=== PATIENT | female | born 1930 | race Caucasian/White ===

== ENCOUNTER → 2017-01-27 | Outpatient (CLI) | payer OTHER ==
[~2017-01-27] MED LIST: LIDOCAINE 1%-EPI 1:100K, 20ML ONE; SODIUM BICARBONATE 4.2%, 5ML ONE
== END | disposition home or self-care (01) ==
LOC: CFH 09:31
PROVIDERS: ATTEND Internal Medicine
DX: R92.8 Other abnormal and inconclusive findings on diagnostic imaging of breast (principal)
CPT/HCPCS: 19081; 88305; G0206; J3490

== ENCOUNTER 2018-07-16 09:44 | Inpatient (IN) | payer MEDICARE, OTHER ==
[~2018-07-16] VITALS: Ht 157.5 cm; Wt 67.3 kg
[2018-07-16] MEDS ORDERED: ASPIRIN 81 MG TABLET CHEW ONE ×2 (10:17→10:22)
[2018-07-16] MEDS ORDERED: OMNIPAQUE 350 MG/ML, 100ML BOTTLE ONE (10:24)
[2018-07-16 10:37] LABS: BASOPHILS # (AUTO) 0.03 x10^3/uL (0-0.1); BASOPHILS % (AUTO) 1 % (0-1); EOSINOPHILS # (AUTO) 0.15 x10^3/uL (0-0.4); EOSINOPHILS % (AUTO) 3 % (1-7); LYMPHOCYTES # (AUTO) 1.75 x10^3/uL (1-3.4); LYMPHOCYTES % (AUTO) 29 % (22-44); MD NO; MEAN CORPUSCULAR HEMOGLOBIN 31.8 pg (27.0-34.8); MEAN CORPUSCULAR HGB CONC 34.2 g/dL (32.4-35.8); MEAN CORPUSCULAR VOLUME 93.1 fL (80-100); MEAN PLATELET VOLUME 9.8 fL (7.4-10.4); MONOCYTES # (AUTO) 0.45 x10^3/uL (0.2-0.8); MONOCYTES % (AUTO) 7 % (2-9); NEUTROPHILS # (AUTO) 3.74 x10^3/uL (1.8-6.8); NEUTROPHILS % (AUTO) 61 % (42-75); PLATELET COUNT 215 x10^3/uL (130-400); RED BLOOD COUNT 4.53 x10^6/uL (3.82-5.3); RED CELL DISTRIBUTION WIDTH 13.8 % (9.6-15.2)
[2018-07-16 10:48] LABS: INTERNATIONAL NORMALIZED RATIO 1.14 (0.93-1.1); PROTHROMBIN TIME 11.7 Seconds (9.6-11.5)
[2018-07-16 11:03] LABS: TROPONIN I 0.016 ng/mL (0.000-0.045)
[2018-07-16] MEDS ORDERED: ASPIRIN 81 MG TABLET CHEW PO ONE (11:30)
[2018-07-16 12:54] VITALS: BP 159/75
[2018-07-16] MEDS ORDERED: ONDANSETRON 2MG/ML, 2ML IVPush PRN (13:00)
[2018-07-16] MEDS ORDERED: LABETALOL 5MG/ML, 20ML IVPush PRN (13:00)
[2018-07-16] MEDS ORDERED: BISACODYL 10 MG SUPP PR PRN (13:00)
[2018-07-16] MEDS: D5%-0.45NACL+KCL 20MEQ 1,000 ML IV SCH (13:39)
[2018-07-16] MEDS: ENOXAPARIN 40 MG/0.4 ML SQ SCH (13:40)
[2018-07-16 14:00] VITALS: BP 159/75
[2018-07-16 20:00] VITALS: BP 149/72
[2018-07-17 02:00] VITALS: BP 147/72
[2018-07-17] MEDS: D5%-0.45NACL+KCL 20MEQ 1,000 ML IV SCH ×2 (03:34→22:21)
[2018-07-17 05:43] LABS: BASOPHILS # (AUTO) 0.03 x10^3/uL (0-0.1); BASOPHILS % (AUTO) 1 % (0-1); EOSINOPHILS % (AUTO) 2 % (1-7); LYMPHOCYTES # (AUTO) 1.44 x10^3/uL (1-3.4); LYMPHOCYTES % (AUTO) 28 % (22-44); MD NO; MEAN CORPUSCULAR HEMOGLOBIN 32.3 pg (27.0-34.8); MEAN CORPUSCULAR HGB CONC 34.8 g/dL (32.4-35.8); MEAN CORPUSCULAR VOLUME 93.1 fL (80-100); MEAN PLATELET VOLUME 9.3 fL (7.4-10.4); MONOCYTES # (AUTO) 0.42 x10^3/uL (0.2-0.8); MONOCYTES % (AUTO) 8 % (2-9); NEUTROPHILS # (AUTO) 3.16 x10^3/uL (1.8-6.8); NEUTROPHILS % (AUTO) 61 % (42-75); PLATELET COUNT 178 x10^3/uL (130-400); RED BLOOD COUNT 3.89 x10^6/uL (3.82-5.3); RED CELL DISTRIBUTION WIDTH 13.6 % (9.6-15.2)
[2018-07-17 05:56] LABS: ANION GAP 8 mmol/L (5-15); CALCIUM 8.6 mg/dL (8.5-10.1); CHLORIDE 112 mmol/L (98-107)
[2018-07-17 05:57] LABS: CREATININE 0.91 mg/dL (0.55-1.02)
[2018-07-17 06:52] VITALS: BP 148/75
[2018-07-17 12:39] VITALS: BP 156/72
[2018-07-17] MEDS: ENOXAPARIN 40 MG/0.4 ML SQ SCH (13:36)
[2018-07-17] MEDS ORDERED: GADOBUTROL 7.5 MMOL/7.5 ML PFS ONE (17:05)
[2018-07-17 17:45] LABS: CHOL/HDL RATIO 5.4; LDL/HDL RATIO 2.5 (0.5-3.0)
[2018-07-17] MEDS: ASPIRIN 81 MG TABLET CHEW PO SCH (18:20)
[2018-07-17 20:00] VITALS: BP 148/69
[2018-07-18 02:00] VITALS: BP 153/73
[2018-07-18 08:34] VITALS: BP 114/66
[2018-07-18] MEDS: ASPIRIN 81 MG TABLET CHEW PO SCH (10:08)
[2018-07-18] MEDS: LEVOTHYROXINE 100 MCG TABLET PO SCH (10:08)
[2018-07-18 12:59] LABS: MICROSCOPIC INDICATED
[2018-07-18] MEDS: ENOXAPARIN 40 MG/0.4 ML SQ SCH (13:00)
[2018-07-18 13:01] LABS: CULTURE INDICATED? YES
[2018-07-18] MEDS: SULFAMETH./TRIMETHOPRIM DS 800MG/160MG TABLET PO SCH ×2 (13:35→20:42)
[2018-07-18 13:39] VITALS: BP 123/71
[2018-07-18] MEDS ORDERED: ACETAMINOPHEN 325 MG TABLET PO PRN (14:00)
[2018-07-18] MEDS ORDERED: LEVO100T PO (16:57)
[2018-07-18] MEDS ORDERED: ACET325T14 PO (16:57)
[2018-07-18] MEDS ORDERED: SULF-169 PO (16:57)
[2018-07-18] MEDS ORDERED: ASPI-515 PO (16:57)
[2018-07-18] MEDS ORDERED: ATOR40TA78 PO (16:57)
[2018-07-18 19:58] VITALS: BP 136/69
[2018-07-18] MEDS ORDERED: ATORVASTATIN 40 MG TABLET PO SCH (21:00)
[2018-07-18] MEDS ORDERED: SULFAMETH./TRIMETHOPRIM DS 800MG/160MG TABLET PO SCH (21:00)
[2018-07-19 01:48] VITALS: BP 130/74
[2018-07-19] MEDS: LEVOTHYROXINE 100 MCG TABLET PO SCH (05:08)
[2018-07-19 06:33] VITALS: BP 107/63
[2018-07-19] MEDS ORDERED: ASPIRIN 81 MG TABLET CHEW PO SCH (09:00)
[2018-07-19] MEDS: SULFAMETH./TRIMETHOPRIM DS 800MG/160MG TABLET PO SCH (09:04)
== END 2018-07-19 11:59 | DRG 65 ==
LOC: ED 11:30 → 4WST 11:31 → ED 11:47
PROVIDERS: ADMIT Internal Medicine; ATTEND Internal Medicine
DX: I63.312 Cerebral infarction due to thrombosis of left middle cerebral artery (principal); N39.0 Urinary tract infection, site not specified; R29.810 Facial weakness; E78.5 Hyperlipidemia, unspecified; E03.9 Hypothyroidism, unspecified; M10.9 Gout, unspecified; I10 Essential (primary) hypertension; M81.0 Age-related osteoporosis without current pathological fracture; R13.10 Dysphagia, unspecified; S91.002A Unspecified open wound, left ankle, initial encounter; X58.XXXA Exposure to other specified factors, initial encounter; I08.0 Rheumatic disorders of both mitral and aortic valves; M19.90 Unspecified osteoarthritis, unspecified site; Z66 Do not resuscitate; Z80.0 Family history of malignant neoplasm of digestive organs; Z82.49 Family history of ischemic heart disease and other diseases of the circulatory system; Z90.710 Acquired absence of both cervix and uterus; I69.320 Aphasia following cerebral infarction; Y93.89 Activity, other specified; Y92.89 Other specified places as the place of occurrence of the external cause; Y99.8 Other external cause status
CPT/HCPCS: 36415; 70450; 70496; 70498; 70553; 80047; 80048; 80061; 81001; 84484; 85025; 85610; 85730; 87077; 87086; 87186; 93005; 93306; 93880; 99291; A9585; G0378; J1650; Q9967; 92523-GN; J3480

== ENCOUNTER 2018-09-07 19:16 | Inpatient (IN) | payer OTHER ==
[~2018-09-07] VITALS: Ht 167.6 cm; Wt 63.1 kg
[~2018-09-07 19:16] MED LIST changes: +ACET325T14 PO; +ASPI-515 PO; +ATOR40TA78 PO; +LEVO100T PO; -LIDOCAINE 1%-EPI 1:100K, 20ML ONE; -SODIUM BICARBONATE 4.2%, 5ML ONE; +SULF-169 PO
[2018-09-07] MEDS ORDERED: SODIUM CHLORIDE FLUSH 10ML SYR IVF ONE (20:00)
[2018-09-07 20:31] LABS: INTERNATIONAL NORMALIZED RATIO 1.1 (0.93-1.1); PROTHROMBIN TIME 11.4 Seconds (9.6-11.5)
[2018-09-07 20:32] LABS: ALANINE AMINOTRANSFERASE 28 U/L (12-78); ALBUMIN 2.9 g/dL (3.4-5.0); ANION GAP 11 mmol/L (5-15); CALCIUM 8.3 mg/dL (8.5-10.1); CHLORIDE 107 mmol/L (98-107); CREATININE 0.81 mg/dL (0.55-1.02)
[2018-09-07 20:36] LABS: ALKALINE PHOSPHATASE 91 U/L (45-117); BILIRUBIN,TOTAL 0.3 mg/dL (0.2-1.0); TOTAL PROTEIN 5.9 g/dL (6.4-8.2)
[2018-09-07 20:41] LABS: MEAN CORPUSCULAR HEMOGLOBIN 32.4 pg (27.0-34.8); MEAN CORPUSCULAR HGB CONC 32.7 g/dL (32.4-35.8); MEAN CORPUSCULAR VOLUME 99.3 fL (80-100); MEAN PLATELET VOLUME 8.2 fL (7.4-10.4); PLATELET COUNT 337 x10^3/uL (130-400); RED CELL DISTRIBUTION WIDTH 23.8 % (9.6-15.2)
[2018-09-07] MEDS ORDERED: PANTOPRAZOLE 40 MG IV ONE (20:50)
[2018-09-07] MEDS ORDERED: PANTOPRAZOLE 40 MG IV IVPush ONE (21:00)
[2018-09-07 21:11] LABS: MD YES
[2018-09-07 21:17] LABS: EOS#(MANUAL) 0.08 x10^3/uL (0.0-0.4); EOS% (MANUAL) 1 % (1-7); LYMPHS% (MANUAL) 18 % (22-44); MONOS#(MANUAL) 0.55 x10^3/uL (0.3-2.7); MONOS% (MANUAL) 7 % (2-9); NRBC % (MANUAL) 1 % (0-1); SEG#(MANUAL) 5.77 x10^3/uL (1.8-6.8); SEGS% (MANUAL) 74 % (42-75)
[2018-09-07 21:18] LABS: ANISOCYTOSIS 2+; MICROCYTOSIS 1+
[2018-09-07 21:19] LABS: POLYCHROMASIA 2+; TEAR DROPS 1+
[2018-09-07 21:20] LABS: <PLATELET ESTIMATE> ADEQUATE; <PLT MORPHOLOGY> NORMAL PLT MORPH
[2018-09-07] MEDS ORDERED: SODIUM CHLORIDE 0.9% 1,000 ML IV ONE (21:23)
[2018-09-07 21:47] VITALS: BP 118/42
[2018-09-07 22:05] VITALS: BP 123/41
[2018-09-07 23:15] VITALS: BP 115/65
[2018-09-07 23:44] VITALS: BP 121/65
[2018-09-08 00:40] VITALS: BP 110/57
[2018-09-08] MEDS ORDERED: POTA20TA89 PO (00:40)
[2018-09-08] MEDS ORDERED: FURO40TA6 PO (00:40)
[2018-09-08] MEDS ORDERED: MULT-516 PO (00:40)
[2018-09-08] MEDS ORDERED: DILT60TA30 PO (00:40)
[2018-09-08] MEDS ORDERED: APIX5TAB4 PO (00:40)
[2018-09-08] MEDS ORDERED: FERR325T5 PO (00:40)
[2018-09-08 03:30] LABS: CULTURE INDICATED? YES; MICROSCOPIC INDICATED
[2018-09-08 07:12] VITALS: BP 103/56
[2018-09-08] MEDS ORDERED: ACETAMINOPHEN 325 MG TABLET PO PRN (10:30)
[2018-09-08] MEDS ORDERED: TEMAZEPAM 15 MG CAPSULE PO PRN (10:30)
[2018-09-08] MEDS: SODIUM CHLORIDE FLUSH 10ML SYR IVF SCH ×2 (10:30→21:00)
[2018-09-08] MEDS: PANTOPRAZOLE 40 MG IV IVPush SCH (12:04)
[2018-09-08 14:18] VITALS: BP 101/52
[2018-09-08] MEDS: POTASSIUM CHLORIDE 20 MEQ TAB.ER.PRT PO SCH (18:19)
[2018-09-08] MEDS: FERROUS SULFATE 325 MG TABLET PO SCH (18:19)
[2018-09-08 21:06] VITALS: BP 118/57
[2018-09-09] VITALS (9 sets, daily range): BP systolic 105–121; BP diastolic 52–68
[2018-09-09] MEDS: LEVOTHYROXINE 100 MCG TABLET PO SCH (04:19)
[2018-09-09 05:22] LABS: ANION GAP 8 mmol/L (5-15); CALCIUM 8.1 mg/dL (8.5-10.1); CHLORIDE 110 mmol/L (98-107)
[2018-09-09 05:23] LABS: MEAN CORPUSCULAR HEMOGLOBIN 31.8 pg (27.0-34.8); MEAN CORPUSCULAR HGB CONC 32.6 g/dL (32.4-35.8); MEAN CORPUSCULAR VOLUME 97.6 fL (80-100); MEAN PLATELET VOLUME 7.9 fL (7.4-10.4); PLATELET COUNT 233 x10^3/uL (130-400); RED BLOOD COUNT 1.89 x10^6/uL (3.82-5.3); RED CELL DISTRIBUTION WIDTH 22.8 % (9.6-15.2)
[2018-09-09 05:43] LABS: BASOPHILS # (AUTO) 0.04 x10^3/uL (0-0.1); BASOPHILS % (AUTO) 1 % (0-1); EOSINOPHILS # (AUTO) 0.15 x10^3/uL (0-0.4); EOSINOPHILS % (AUTO) 3 % (1-7); LYMPHOCYTES # (AUTO) 0.99 x10^3/uL (1-3.4); LYMPHOCYTES % (AUTO) 22 % (22-44); MD SCAN; MONOCYTES # (AUTO) 0.37 x10^3/uL (0.2-0.8); MONOCYTES % (AUTO) 9 % (2-9); NEUTROPHILS # (AUTO) 2.88 x10^3/uL (1.8-6.8); NEUTROPHILS % (AUTO) 65 % (42-75)
[2018-09-09] MEDS: FERROUS SULFATE 325 MG TABLET PO SCH ×2 (08:01→16:16)
[2018-09-09] MEDS: SODIUM CHLORIDE FLUSH 10ML SYR IVF SCH ×2 (08:02→21:39)
[2018-09-09] MEDS: POTASSIUM CHLORIDE 20 MEQ TAB.ER.PRT PO SCH ×2 (08:02→16:17)
[2018-09-09] MEDS: PANTOPRAZOLE 40 MG IV IVPush SCH (08:02)
[2018-09-09] MEDS ORDERED: ATOR-2 PO (16:26)
[2018-09-10 02:08] VITALS: BP 130/61
[2018-09-10] MEDS: LEVOTHYROXINE 100 MCG TABLET PO SCH (05:50)
[2018-09-10 07:15] VITALS: BP 110/63
[2018-09-10] MEDS: PANTOPROZOLE 40MG TABLET PO SCH (07:30)
[2018-09-10] MEDS: POTASSIUM CHLORIDE 20 MEQ TAB.ER.PRT PO SCH ×2 (08:00→13:36)
[2018-09-10] MEDS: FERROUS SULFATE 325 MG TABLET PO SCH ×2 (08:00→18:17)
[2018-09-10] MEDS: SODIUM CHLORIDE FLUSH 10ML SYR IVF SCH ×2 (08:38→21:12)
[2018-09-10] MEDS ORDERED: MIDAZOLAM 1 MG/ML, 5ML ONE (08:58)
[2018-09-10] MEDS ORDERED: FENTANYL PF 100 MCG/2ML ONE (08:58)
[2018-09-10 12:06] VITALS: BP 113/64
[2018-09-10] MEDS: SULFAMETH./TRIMETHOPRIM DS 800MG/160MG TABLET PO SCH ×2 (13:36→21:12)
[2018-09-10] MEDS ORDERED: MOVIPREP POWDER 1 PREP KIT PO ONE (18:00)
[2018-09-10 19:45] VITALS: BP 129/70
[2018-09-11 02:01] VITALS: BP 130/71
[2018-09-11 06:30] VITALS: BP 101/55
[2018-09-11] MEDS: FERROUS SULFATE 325 MG TABLET PO SCH ×2 (08:45→08:49)
[2018-09-11] MEDS: PANTOPROZOLE 40MG TABLET PO SCH (08:45)
[2018-09-11] MEDS: LEVOTHYROXINE 100 MCG TABLET PO SCH (08:45)
[2018-09-11] MEDS: SULFAMETH./TRIMETHOPRIM DS 800MG/160MG TABLET PO SCH ×2 (08:45→20:39)
[2018-09-11] MEDS: POTASSIUM CHLORIDE 20 MEQ TAB.ER.PRT PO SCH (08:45)
[2018-09-11] MEDS: SODIUM CHLORIDE FLUSH 10ML SYR IVF SCH ×2 (08:45→20:40)
[2018-09-11 12:10] VITALS: BP 132/66
[2018-09-11] MEDS: FUROSEMIDE 20 MG TABLET PO SCH (13:01)
[2018-09-11 19:13] VITALS: BP 128/62
[2018-09-11] MEDS ORDERED: MOVIPREP POWDER 1 PREP KIT PO ONE (20:00)
[2018-09-11] MEDS: ATORVASTATIN 80 MG TABLET PO SCH (20:39)
[2018-09-12 02:08] VITALS: BP 118/66
[2018-09-12 04:52] LABS: BASOPHILS # (AUTO) 0.03 x10^3/uL (0-0.1); BASOPHILS % (AUTO) 1 % (0-1); EOSINOPHILS # (AUTO) 0.14 x10^3/uL (0-0.4); EOSINOPHILS % (AUTO) 3 % (1-7); LYMPHOCYTES # (AUTO) 1.07 x10^3/uL (1-3.4); LYMPHOCYTES % (AUTO) 24 % (22-44); MD NO; MEAN CORPUSCULAR HEMOGLOBIN 32.4 pg (27.0-34.8); MEAN CORPUSCULAR HGB CONC 33.1 g/dL (32.4-35.8); MEAN PLATELET VOLUME 7.9 fL (7.4-10.4); MONOCYTES # (AUTO) 0.52 x10^3/uL (0.2-0.8); MONOCYTES % (AUTO) 12 % (2-9); NEUTROPHILS # (AUTO) 2.78 x10^3/uL (1.8-6.8); NEUTROPHILS % (AUTO) 61 % (42-75); PLATELET COUNT 195 x10^3/uL (130-400); RED BLOOD COUNT 2.73 x10^6/uL (3.82-5.3); RED CELL DISTRIBUTION WIDTH 19.6 % (9.6-15.2)
[2018-09-12 04:56] LABS: ALANINE AMINOTRANSFERASE 27 U/L (12-78); ALBUMIN 2.3 g/dL (3.4-5.0); ANION GAP 9 mmol/L (5-15); CALCIUM 7.9 mg/dL (8.5-10.1); CHLORIDE 109 mmol/L (98-107)
[2018-09-12 04:59] LABS: ALKALINE PHOSPHATASE 94 U/L (45-117); BILIRUBIN,TOTAL 0.3 mg/dL (0.2-1.0); CREATININE 0.56 mg/dL (0.55-1.02); TOTAL PROTEIN 4.8 g/dL (6.4-8.2)
[2018-09-12] MEDS: LEVOTHYROXINE 100 MCG TABLET PO SCH (06:00)
[2018-09-12 07:28] VITALS: BP 104/58
[2018-09-12] MEDS: SODIUM CHLORIDE FLUSH 10ML SYR IVF SCH ×2 (09:25→21:31)
[2018-09-12] MEDS ORDERED: PROPOFOL 10 MG/ML, 20ML ONE (10:02)
[2018-09-12] MEDS ORDERED: IRON SUCROSE COMPLEX 100MG/5ML IV ONE (13:00)
[2018-09-12] MEDS: FUROSEMIDE 20 MG TABLET PO SCH (13:00)
[2018-09-12] MEDS: SULFAMETH./TRIMETHOPRIM DS 800MG/160MG TABLET PO SCH ×2 (13:00→21:31)
[2018-09-12 13:34] VITALS: BP 118/63
[2018-09-12] MEDS ORDERED: ACETAMINOPHEN 325 MG TABLET PO PRN (15:00)
[2018-09-12] MEDS ORDERED: OXYcodone 5 MG/5 ML ORAL.SOL UDC PO PRN (15:00)
[2018-09-12] MEDS ORDERED: FENTANYL PF 100 MCG/2ML IV PRN (15:00)
[2018-09-12] MEDS: PANTOPROZOLE 40MG TABLET PO SCH (17:30)
[2018-09-12] MEDS: POTASSIUM CHLORIDE 20 MEQ TAB.ER.PRT PO SCH (17:30)
[2018-09-12 19:17] VITALS: BP 110/61
[2018-09-12] MEDS: ATORVASTATIN 80 MG TABLET PO SCH (21:31)
[2018-09-13 02:24] VITALS: BP 101/52
[2018-09-13] MEDS: LEVOTHYROXINE 100 MCG TABLET PO SCH (06:09)
[2018-09-13 07:42] VITALS: BP 106/46
[2018-09-13] MEDS: PANTOPROZOLE 40MG TABLET PO SCH (08:29)
[2018-09-13] MEDS: FUROSEMIDE 20 MG TABLET PO SCH (08:29)
[2018-09-13] MEDS: SODIUM CHLORIDE FLUSH 10ML SYR IVF SCH (08:29)
[2018-09-13] MEDS: SULFAMETH./TRIMETHOPRIM DS 800MG/160MG TABLET PO SCH (08:29)
[2018-09-13] MEDS: POTASSIUM CHLORIDE 20 MEQ TAB.ER.PRT PO SCH (08:29)
[2018-09-13 08:39] VITALS: BP 124/70
[2018-09-13] MEDS ORDERED: SULF-169 PO (12:50)
[2018-09-13] MEDS ORDERED: DILT60TA27 PO (12:50)
[2018-09-13] MEDS ORDERED: FURO20TA3 PO (12:50)
[2018-09-13] MEDS ORDERED: POTA20TA6 PO (12:50)
[2018-09-13 13:10] VITALS: BP 121/69
[2018-09-13] MEDS ORDERED: DILTIAZEM 60 MG TABLET PO SCH (21:00)
== END 2018-09-13 18:05 | disposition home health service (06) | DRG 377 ==
LOC: ED 21:57 → EDIP 22:09 → 4WST 22:15
PROVIDERS: ADMIT Internal Medicine; ATTEND Internal Medicine
PROC: 30233N1 Transfusion of Nonautologous Red Blood Cells into Peripheral Vein, Percutaneous Approach (ICD-10-PCS; principal; 2018-09-07)
PROC: 0DJ08ZZ Inspection of Upper Intestinal Tract, Via Natural or Artificial Opening Endoscopic (ICD-10-PCS; 2018-09-10)
PROC: 0DJD8ZZ Inspection of Lower Intestinal Tract, Via Natural or Artificial Opening Endoscopic (ICD-10-PCS; 2018-09-12)
DX: K29.71 Gastritis, unspecified, with bleeding (principal); E43 Unspecified severe protein-calorie malnutrition; N39.0 Urinary tract infection, site not specified; B96.20 Unspecified Escherichia coli [E. coli] as the cause of diseases classified elsewhere; D50.0 Iron deficiency anemia secondary to blood loss (chronic); E03.9 Hypothyroidism, unspecified; E78.5 Hyperlipidemia, unspecified; I08.0 Rheumatic disorders of both mitral and aortic valves; I11.0 Hypertensive heart disease with heart failure; I48.2 Chronic atrial fibrillation; I50.9 Heart failure, unspecified; K64.4 Residual hemorrhoidal skin tags; M10.9 Gout, unspecified; M81.0 Age-related osteoporosis without current pathological fracture; Z79.01 Long term (current) use of anticoagulants; Z80.0 Family history of malignant neoplasm of digestive organs; Z82.49 Family history of ischemic heart disease and other diseases of the circulatory system; Z90.710 Acquired absence of both cervix and uterus; Z98.42 Cataract extraction status, left eye; Z98.41 Cataract extraction status, right eye; Z86.73 Personal history of transient ischemic attack (TIA), and cerebral infarction without residual deficits; E87.6 Hypokalemia; Z79.899 Other long term (current) drug therapy; Z79.82 Long term (current) use of aspirin; Z66 Do not resuscitate; E07.9 Disorder of thyroid, unspecified; M19.90 Unspecified osteoarthritis, unspecified site; T45.515A Adverse effect of anticoagulants, initial encounter
CPT/HCPCS: 36415; 71045; 80048; 80053; 81001; 83880; 84484; 85014; 85018; 85025; 85610; 85730; 86850; 86900; 86923; 87077; 87086; 87186; 90656; 93005; 96361; 96374; 99152; 99153; 99291; G0378; J1756; J2250; J2704; J3010; C9113; J7030; P9016

== ENCOUNTER 2019-09-13 12:04 | Emergency (ER) | payer MEDICARE, OTHER ==
[~2019-09-13] VITALS: Ht 167.6 cm; Wt 58.0 kg
[~2019-09-13 12:04] MED LIST changes: +APIX5TAB4 PO; +ATOR-2 PO; +DILT60TA27 PO; +DILT60TA30 PO; +FERR325T5 PO; +FURO20TA3 PO; +FURO40TA6 PO; +MULT-516 PO; +POTA20TA6 PO; +POTA20TA89 PO
--- NOTE | 2019-09-13 12:23 | NUR ---
PATIENT [facility] TRIAGE WITH CHIEF COMPLAINT OF GLF TWO DAYS AGO, HOWEVER INCREASING PAIN AND N/V THIS AM. THE PATIENT IS ALERT, ORIENTED, WARM AND DRY. HADOOP CONSULTANT & SON AT BEDSIDE.
[2019-09-13] MEDS ORDERED: ONDANSETRON ODT 4 MG ONE (12:59)
[2019-09-13] MEDS ORDERED: ONDANSETRON ODT 4 MG PO ONE (13:00)
--- NOTE | 2019-09-13 13:06 | NUR ---
PT TO IMAGING
[2019-09-13 13:12] LABS: BASOPHILS # (AUTO) 0.02 x10^3/uL (0-0.1); BASOPHILS % (AUTO) 0 % (0-1); EOSINOPHILS # (AUTO) 0.03 x10^3/uL (0-0.4); EOSINOPHILS % (AUTO) 0 % (1-7); LYMPHOCYTES % (AUTO) 10 % (22-44); MD NO; MEAN CORPUSCULAR HEMOGLOBIN 31.5 pg (27.0-34.8); MEAN CORPUSCULAR VOLUME 95.3 fL (80-100); MEAN PLATELET VOLUME 8.9 fL (7.4-10.4); MONOCYTES # (AUTO) 0.53 x10^3/uL (0.2-0.8); MONOCYTES % (AUTO) 7 % (2-9); NEUTROPHILS # (AUTO) 6.63 x10^3/uL (1.8-6.8); NEUTROPHILS % (AUTO) 83 % (42-75); PLATELET COUNT 206 x10^3/uL (130-400); RED BLOOD COUNT 4.99 x10^6/uL (3.82-5.3); RED CELL DISTRIBUTION WIDTH 14.6 % (9.6-15.2)
[2019-09-13 13:13] LABS: ALBUMIN 3.7 g/dL (3.4-5.0); ANION GAP 5 mmol/L (5-15); CALCIUM 9.2 mg/dL (8.5-10.1); CHLORIDE 107 mmol/L (98-107); CREATININE 0.49 mg/dL (0.55-1.02)
--- NOTE | 2019-09-13 13:30 | NUR ---
PATIENT RESTING IN BED, NO COMPLAINTS AT THIS TIME. CALL LIGHT IN REACH
[2019-09-13 13:45] VITALS: BP 176/62
--- NOTE | 2019-09-13 14:08 | NUR ---
VIRGIL HOPKINS AT BEDSIDE FOR UPDATE
--- NOTE | 2019-09-13 14:14 | NUR ---
DISCHARGE INSTRUCTIONS REVIEWED
== END 2019-09-13 14:31 | disposition home or self-care (01) ==
LOC: ED 14:09
DX: S22.081A Stable burst fracture of T11-T12 vertebra, initial encounter for closed fracture (principal); S30.0XXA Contusion of lower back and pelvis, initial encounter; M25.552 Pain in left hip; W01.0XXA Fall on same level from slipping, tripping and stumbling without subsequent striking against object, initial encounter; Y93.89 Activity, other specified; Y92.89 Other specified places as the place of occurrence of the external cause; Y99.8 Other external cause status
CPT/HCPCS: 36415; 72110; 72190; 80048; 82040; 85025; 99284; Q0162